=== PATIENT | female | born 1980 | race Caucasian/White ===

== ENCOUNTER 2021-06-30 16:36 | Emergency (ER) | payer OTHER, SELFPAY ==
[2021-06-30 16:39] VITALS: BP 158/110; PULSE 114; RESP 16; TEMP 36.6; O2SAT 100
--- NOTE | 2021-06-30 16:39 | ED.BACK ---
HPI - Back Pain/Injury General Chief Complaint: Back Pain/Injury Stated Complaint: LOW BACK PAIN Time Seen by Provider: 06/30/21 16:41 Source: patient and RN notes reviewed Mode of arrival: ambulatory Limitations: no limitations History of Present Illness HPI Narrative: Nani is a 41 year old female patient who ambulated into the [facility] with low back pain for 1 month. She states she has been sitting more than usual and sleeping on a hard mattress. Denies any numbness or tingling or pain in her legs. She states she stood on her feet all day Monday and Monday which increased pain in her back. She states she has taken Motrin 1 tablet occasionally and no other OTC medications or measures. Denies any urinary symptoms. MD elicited complaint: back pain Related Data Home Medications Medication Instructions Recorded Confirmed irbesartan 300 1 tablet PO DAILY 02/11/20 03/02/21 mg-hydrochlorothiazide 12.5 mg tablet medroxyprogesterone 150 mg/mL 150 mg IM [id number] 02/11/20 03/02/21 intramuscular suspension rizatriptan 10 mg tablet 10 mg PO ONCE 01/19/21 03/02/21 cholecalciferol (vitamin D3) 50 50 mcg PO DAILY 03/02/21 03/02/21 mcg (2,000 unit) capsule Allergies Allergy/AdvReac Type Severity Reaction Status Date / Time No Known Allergies Allergy Verified 07/16/20 15:53 Review of Systems Review of Systems: CONSTITUTIONAL: Denies body aches, fever, chills, or sweats. EYES: Denies visual changes, redness, or discharge. ENT: Denies rhinorrhea, congestion, sore throat, or otalgia. CARDIOVASCULAR: Denies chest pain, palpitations, or edema. RESPIRATORY: Denies cough or dyspnea. GASTROINTESTINAL: Denies abdominal pain, nausea, vomiting, or diarrhea. GENITOURINARY: Denies dysuria or hematuria. SKIN: Denies rash, itching, or wounds. MUSCULOSKELETAL: Denies joint pain, or myalgia.+ back pain NEUROLOGIC: Denies headache, numbness, tingling, or weakness. PSYCH: Denies depression or anxiety. All systems reviewed & are unremarkable except as noted in HPI and below PMFSH Past Medical History Medical History Acute bacterial tonsillitis Anxiety B12 deficiency Encounter for wellness examination Essential (primary) hypertension Frequent headaches Migraine headache with aura Morbid obesity with BMI of 45.0-49.9, adult Plantar fasciitis Primary hypertension Rash and nonspecific skin eruption Vitamin D deficiency Surgical History Surgical History Hx of dilation and curettage x3 [place] teeth extracted Family History Family History Father Heart disease Hypertension Cerebrovascular accident History of heart valve replacement Grandparent Ovarian cancer Grandparent Cancer Grandparent Lung cancer Social History Social History Smoking status: Never smoker Second hand tobacco smoke exposure: No Alcohol intake: never Substance use: never Substance use type: does not use Gender identity (if verbalized by the patient): Female Comments At time of signature, I have reviewed and agree with nursing past medical, surgical, social and family history unless otherwise noted. Please see nursing chart for further information. There is no relevant family history pertinent to the presenting complaint Exam Narrative: GENERAL: Well-appearing, well-nourished, and in no acute distress. HEAD: Normocephalic, atraumatic. EYES: EOMI. No redness or drainage. Conjunctivae normal. ENT: Mucous membranes pink and moist. Nares clear. No rhinorrhea. NECK: Normal AROM. Supple. CHEST: No respiratory distress. Clear to auscultation. MUSCULOSKELETAL: No bony tenderness; EXTREMITIES: Normal range of motion. No edema; straight leg raise negative for sciatica; n
== END 2021-06-30 16:57 | disposition home or self-care (01) ==
PROVIDERS: Emergency Provider Nurse Practitioner Family; PCP Nurse Practitioner Family
DX: S33.5XXA Sprain of ligaments of lumbar spine, initial encounter (principal); X50.1XXA Overexertion from prolonged static or awkward postures, initial encounter; X50.9XXA Other and unspecified overexertion or strenuous movements or postures, initial encounter; I10 Essential (primary) hypertension; E66.01 Morbid (severe) obesity due to excess calories; Z68.42 Body mass index [BMI] 45.0-49.9, adult; E55.9 Vitamin D deficiency, unspecified
CPT/HCPCS: 99213; G0463

== ENCOUNTER 2022-03-11 07:18 | Outpatient (CLI) | payer OTHER, SELFPAY ==
--- NOTE | 2022-03-15 18:47 | WPDHOMESLEEP ---
Sleep Study - Home Unattended Date of Study: 03/11/22 Ordering Provider: Sravani Baker NP Interpreting Provider: Lanie Foreman, DO Home Sleep Study Type: Watch PAT Height: 1.78 m Weight: 167.829 kg Body Mass Index: 53.1 Neck Circumference (inches): 17.75 [place]: 4 Reason for Sleep Study Loud snoring Sleep History The patient is a 41-year-old female with hypertension that had a sleep study ordered by her primary care physician for evaluation of sleep apnea. 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 She denies awakening from sleep short of breath. She occasionally awakens at night with heartburn, belching or cough. She constantly snores loud enough that others complain. She occasionally has trouble sleeping when she has a cold. She rarely wakes up gasping for air throughout the night. She denies having breathing problems at night observed by herself or others. She rarely sweats excessively at night. She denies having heart palpitations or irregular heartbeats during the night. She denies falling asleep during the day and while driving. She denies sleep paralysis and cataplexy. She denies having trouble at school or work due to sleepiness. She rarely experiences vivid dreamlike scenes upon awakening or falling asleep. She denies feeling afraid of going to sleep. She occasionally has nightmares and occasionally remembers her dreams. She frequently has thoughts racing through her mind. She denies feeling sad or depressed. She frequently has anxiety. She denies having muscular tension. She denies noticing parts of her body jerk. She denies kicking during the night. She denies having crawling and aching feelings in her legs as well as leg pain during the night. She denies grinding her teeth during sleep awakening with morning jaw pain. She denies being bothered by pain during the day but is rarely awakened by pain during the night. She occasionally wakes up feeling stiff in the morning. She rarely wakes up with sore achy muscles. She occasionally wakes up with pain in the neck, spine or other joints. She goes to bed at 9:00 p.m. on both weekdays and weekends. It takes her less than 10 minutes to fall asleep. She wakes up 2-3 times throughout the night to urinate. She is able to fall back asleep within 5-10 minutes. She wakes up at 6:00 a.m. on weekdays and between 6-7 a.m. on the weekends. She typically gets 8-9 hours of sleep per night. She will stay in bed for 30 minutes after waking up in the morning. She currently lives with her parents. She does not consume any caffeinated beverages within 2 hours of bedtime. She does not engage in physical exercise before bedtime. She will watch television before falling asleep. She does not take naps in the afternoon or the evening. He drinks 2 cups of caffeinated tea per day. She denies tobacco, alcohol and recreational drug use. [facility] Past Medical History Medical History Acute bacterial tonsillitis Anxiety B12 deficiency Elevated fasting glucose Encounter for wellness examination Essential (primary) hypertension Frequent headaches Lumbago Migraine headache with aura Morbid obesity with BMI of 45.0-49.9, adult Morbid obesity with BMI of 50.0-59.9, adult Nasal congestion Nocturia Paresthesia Plantar fasciitis Primary hypertension Rash and nonspecific skin eruption Snoring Vitamin D deficiency Surgical History Surgical History Hx of dilation and curettage x3 [place] teeth extracted Family History Family History Father Heart disease Hypertension Cerebrovascular accident History of heart valve replacement Grandparent Ovarian cancer Grandparent Cancer Grandparent Lung cancer Social History Social History (Reviewed 03/15/22
[2022-03-15 19:07] VITALS: BMI 53.1
== END 2022-03-14 11:47 | disposition home or self-care (01) ==
LOC: ANHCSM 07:21
PROVIDERS: PCP Nurse Practitioner Family; Visit Provider Nurse Practitioner Family
DX: G47.33 Obstructive sleep apnea (adult) (pediatric) (principal); G47.10 Hypersomnia, unspecified
CPT/HCPCS: 95800

== ENCOUNTER 2022-03-31 08:01 | Outpatient (CLI) | payer OTHER, SELFPAY ==
--- NOTE | 2022-04-19 20:57 | WPDSLEEPSTUD ---
Sleep Study Date of Study: 03/31/22 Ordering Provider: Sravani Baker NP Interpreting Physician: Modesta Garcia MD Sleep Study Type: BiPAP Titration Height: 1.78 m Weight: 167.829 kg Body Mass Index: 53.1 Neck Circumference (inches): 17 [place]: 4 Reason for Sleep Study * 03/11/2022 home sleep test with WatchPat showing severe SARAH, overall AHI of 82.5 with desaturation down to 72%; she is here for a PAP titration. She had few central on her baseline study, central apnea index was only 1.8. Sleep History Nani Tolbert is a 42-year-old female with severe obstructive sleep apnea on a home sleep test 03/11/2022. She denies awakening from sleep short of breath.? She occasionally awakens at night with heartburn, belching or cough.? She constantly snores loudly enough that others complain.? She occasionally has trouble sleeping when she has a cold.? She rarely wakes up gasping for air throughout the night.? She denies having breathing problems at night observed by herself or others.? She rarely sweats excessively at night.? She denies having heart palpitations or irregular heartbeats during the night.? She denies falling asleep during the day or while driving.? She denies feeling paralyzed on falling asleep or on waking. She does not have loss of muscle tone with strong emotion. She denies having daytime difficulties at work due to sleepiness.? She rarely experiences vivid dreamlike scenes upon awakening or falling asleep.? She denies feeling afraid of going to sleep.? She occasionally has nightmares and occasionally remembers her dreams.? She frequently has thoughts racing through her mind.? She denies feeling sad or depressed.? She frequently has anxiety.? She denies having muscular tension.? She denies noticing parts of her body jerk.? She denies kicking during the night.? She denies having crawling and aching feelings in her legs as well as leg pain during the night.? She denies grinding her teeth during sleep or waking with morning jaw pain.? She denies being bothered by pain during the day, and she is rarely awakened by pain during the night.? She occasionally wakes up feeling stiff in the morning.? She rarely wakes up with sore or achy muscles.? She occasionally wakes up with pain in the neck, spine or other joints.? Normal bedtime is 9:00 p.m., taking less taking less than 10 minutes to fall asleep.? She wakes up 2-3 times throughout the night to urinate.? She is able to return to sleep within 5-10 minutes.? She wakes up at 6:00 a.m. on weekdays and between 6-7 a.m. on the weekends.? She typically gets 8-9 hours of sleep per night.? She will stay in bed for 30 minutes after waking up in the morning.? She currently lives with her parents.? She does not take naps in the afternoon or the evening.? Habits: 2 cups of caffeinated tea per day.? She denies tobacco, alcohol and recreational drug use. [facility] Past Medical History Medical History Acute bacterial tonsillitis Anxiety B12 deficiency Elevated fasting glucose Encounter for wellness examination Essential (primary) hypertension Frequent headaches Lumbago Migraine headache with aura Morbid obesity with BMI of 45.0-49.9, adult Morbid obesity with BMI of 50.0-59.9, adult Nasal congestion Nocturia Paresthesia Plantar fasciitis Primary hypertension Rash and nonspecific skin eruption Snoring Vitamin D deficiency Surgical History Surgical History Hx of dilation and curettage x3 [place] teeth extracted Family History Family History Father Heart disease Hypertension Cerebrovascular accident History of heart valve replacement Grandparent Ovarian cancer Grandparent Cancer Grandparent Lung cancer Social History Social History Aj
[2022-04-21 15:12] VITALS: BMI 53.1
== END 2022-04-01 05:16 | disposition home or self-care (01) ==
LOC: ANHCSM 08:02
PROVIDERS: PCP Nurse Practitioner Family; Visit Provider Nurse Practitioner Family
DX: G47.33 Obstructive sleep apnea (adult) (pediatric) (principal); G47.39 Other sleep apnea
CPT/HCPCS: 95811

== ENCOUNTER → 2023-01-09 10:11 | Outpatient (CLI) | payer OTHER, SELFPAY ==
--- NOTE | ~2023-01-09 | XR_ITS ---
EXAMINATION: XR ribs LT 2V Exam Date/Time: 01/09/2023 10:13 CDT HISTORY: R07.81 - Pleurodynia, left lower posterior rib pain Comparison: 12/26/2017. RESULT: Lines, tubes, and devices: None. Lungs and pleura: Low volumes in the left hemithorax. Considerable elevation of the left hemidiaphra gm, new since prior study. Minimal streaky left basilar atelectasis. No focal consolidation. Cardiothymic silhouette: Stable. Other: No acute osseous or upper abdominal finding. IMPRESSION: Low lung volumes with left hemidiaphragm elevation. No acute osseous finding in the left ribs. Reviewed, dictated and finalized at location K.
== END ==
PROVIDERS: PCP Family Medicine; Visit Provider Nurse Practitioner Family
DX: R07.81 Pleurodynia (principal)
CPT/HCPCS: 71100

== ENCOUNTER 2023-01-11 07:07 | Outpatient (CLI) | payer OTHER, SELFPAY ==
--- NOTE | 2023-01-11 07:38 | ECG_ITS ---
Measurements Intervals [place] Rate: 88 P: 59 [place]: 157 QRS: -21 QRSD: 107 T: 18 QT: 359 QTc: 436 Interpretive Statements SINUS RHYTHM LOW QRS VOLTAGE IN PRECORDIAL LEADS INCOMPLETE RIGHT BUNDLE BRANCH BLOCK BORDERLINE R WAVE PROGRESSION, ANTERIOR LEADS BORDERLINE ECG NO PREVIOUS ECG AVAILABLE FOR COMPARISON Electronically Signed On 01-11-2023 7:53:15 CDT by Alli Kauffman D.O.
[2023-01-11 07:49] LABS: Alanine Aminotransferase 22 U/L (6-35); Albumin Level 4.2 g/dL (3.5-5.1); Alkaline Phosphatase 62 U/L (38-126); Anion Gap 7 mmol/L (8-16); Aspartate Amino Transferase 24 U/L (14-36); Bilirubin,Total 1.1 mg/dL (0.2-1.3); Blood Urea Nitrogen 12 mg/dL (7-17); Calcium 9.1 mg/dL (8.4-10.2); Carbon Dioxide 26 mmol/L (22-30); Chloride 104 mmol/L (98-107); Cholesterol 170 mg/dL (0-200); Estimated Glomerular Filt Rate > 60; Glucose 122 mg/dL (65-110); HDL Direct 34 mg/dL; Lipase 81 U/L (23-300); Potassium 3.9 mmol/L (3.4-5.0); Sodium 137 mmol/L (137-145); Triglycerides 140 mg/dL (<150)
[2023-01-11 08:00] LABS: LDL Cholesterol Direct 105 mg/dL
[2023-01-11 12:07] LABS: Hemoglobin A1C 5.7 % (<5.7)
== END 2023-01-11 07:08 | disposition home or self-care (01) ==
LOC: ANHLAB 07:11
PROVIDERS: PCP Family Medicine; Visit Provider Nurse Practitioner Family
DX: R10.12 Left upper quadrant pain (principal); Z68.43 Body mass index [BMI] 50.0-59.9, adult; E66.01 Morbid (severe) obesity due to excess calories; R73.01 Impaired fasting glucose; R07.81 Pleurodynia; I10 Essential (primary) hypertension; Z82.49 Family history of ischemic heart disease and other diseases of the circulatory system; I45.19 Other right bundle-branch block
CPT/HCPCS: 36415; 80053; 80061; 83036; 83690; 93005

== ENCOUNTER → 2023-02-03 07:18 | Outpatient (CLI) | payer OTHER, SELFPAY ==
--- NOTE | ~2023-02-03 | MM_ITS ---
EXAMINATION: MM screening [place] BI w ninfa HISTORY: Screening mammogram TECHNIQUE: Craniocaudal and mediolateral oblique 3-D tomosynthesis images were obtained and synthetic 2-D images were generated. CAD analysis was submitted and interpreted. COMPARISON: No prior mammogram is available for comparison at this institution. BREAST PARENCHYMAL COMPOSITION: There are scattered areas of fibroglandular density. FINDINGS: There is no evidence of suspicious mass, calcification, or architectural distortion to sugg est malignancy in either breast. There has been no suspicious interval change. IMPRESSION: 1. No mammographic evidence of malignancy. 2. Recommend routine screening mammography in one year. BI-RADS Category 1: Negative Reviewed, dictated and finalized at location A.
== END ==
PROVIDERS: PCP Nurse Practitioner Family; Visit Provider Obstetrics & Gynecology
DX: Z12.31 Encounter for screening mammogram for malignant neoplasm of breast (principal)
CPT/HCPCS: 77063; 77067

== ENCOUNTER → 2023-03-15 08:00 | Outpatient (CLI) | payer OTHER, SELFPAY ==
--- NOTE | ~2023-03-15 | CT_ITS ---
CT of the Abdomen and Pelvis: Indication: Left flank pain Technique: 2.5 mm axial scans were obtained through the abdomen and pelvis prior to and following in travenous administration of 100 cc of Omnipaque 350. Dose reduction technique was used on this scan b y utilizing automated exposure control and iterative reconstruction technique. The dose-length produc t (DLP) was 1988.64 mGy-cm. Findings: Scans through the lung bases are unremarkable. The liver, spleen, pancreas, gallbladder, right adrenal gland, and kidneys are within normal limits. 1.4 cm left adrenal nodule demonstrates low density on precontrast images, compatible with benign nirav noma. No evidence of aortic aneurysm. No lymphadenopathy. No bowel obstruction or bowel wall thickening. There is no evidence to suggest acute appendicitis. Images through the pelvis were performed. Urinary bladder unremarkable. No adnexal mass seen. No asci neri. Impression: 1.4 cm left adrenal adenoma, otherwise unremarkable exam. Reviewed, dictated and finalized at [facility]. Impression: 1.4 cm left adrenal adenoma, otherwise unremarkable exam.
[2023-03-15 08:39] LABS: Estimated Glomerular Filt Rate > 60
== END ==
PROVIDERS: PCP Nurse Practitioner Family; Visit Provider Family Medicine
DX: D35.02 Benign neoplasm of left adrenal gland (principal); R10.9 Unspecified abdominal pain; J98.6 Disorders of diaphragm
CPT/HCPCS: 74178; Q9967

== ENCOUNTER → 2023-08-02 09:16 | Outpatient (CLI) | payer OTHER, SELFPAY ==
--- NOTE | ~2023-08-02 | XR_ITS ---
EXAMINATION: XR ribs LT 2V w CXR 2V DATE: 08/02/2023 09:35 INDICATION: Left lateral chest pain. TECHNIQUE: Frontal and lateral views of the chest and 2 views on 3 radiographs of the left ribs were obtained. COMPARISON: Left rib radiographs 01/09/2023 FINDINGS: CHEST TWO VIEWS: There is no pneumonia, pleural effusion, or pneumothorax. The heart size is normal. LEFT RIBS: There is no rib fracture. IMPRESSION: 1. No rib fracture. Reviewed, dictated and finalized at location A. IN[facility] CENTER MANAGER IMPRESSION: 1. No rib fracture.
== END ==
PROVIDERS: PCP Family Medicine; Visit Provider Nurse Practitioner Family
DX: R07.89 Other chest pain (principal)
CPT/HCPCS: 71046; 71100

== ENCOUNTER 2024-06-08 07:11 | Outpatient (CLI) | payer OTHER, SELFPAY ==
[2024-06-08 07:29] LABS: Basophils Absolute Auto 0.1 K/mm3 (0.0-0.1); Basophils Percent Auto 0.8 % (0.2-1.2); Eosinophils Absolute Auto 0.1 K/mm3 (0-0.3); Eosinophils Percent Auto 1.7 % (0-4.4); Hematocrit 41.4 % (37.0-47.0); Hemoglobin 13.8 g/dL (12.0-15.0); Immature Granulocyte Absolute 0.03 K/mm3 (0.00-0.031); Immature Granulocyte Percent A 0.4 % (0-0.5); Lymphocytes Absolute Auto 1.68 K/mm3 (0.9-3.2); Lymphocytes Percent Auto 21.6 % (18.3-44.2); Mean Corpuscular HGB Conc 33.3 g/dl (32-36); Mean Platelet Volume 10.7 fl (7.4-10.4); Monocytes Absolute Auto 0.4 K/mm3 (0.1-0.6); Monocytes Percent Auto 5.3 % (2.6-8.5); Neutrophils Absolute Auto 5.5 K/mm3 (1.3-6.7); Neutrophils Percent Auto 70.2 % (45.5-73.1); Platelet Count Result 230 k/mm3 (150-375); Red Blood Count 4.45 M/mm3 (4.2-5.4); White Blood Count 7.8 K/mm3 (4.5-10.0)
[2024-06-08 07:40] LABS: Alanine Aminotransferase 15 U/L (6-35); Alkaline Phosphatase 60 U/L (38-126); Anion Gap 6 mmol/L (4-12); Aspartate Amino Transferase 21 U/L (14-36); Bilirubin,Total 0.8 mg/dL (0.2-1.3); Blood Urea Nitrogen 13 mg/dL (7-17); Calcium 9.1 mg/dL (8.4-10.2); Carbon Dioxide 27 mmol/L (22-30); Chloride 107 mmol/L (98-107); Cholesterol 158 mg/dL (0-200); Estimated Glomerular Filt Rate > 60; Glucose 118 mg/dL (65-110); HDL Direct 34 mg/dL; Potassium 4.5 mmol/L (3.4-5.0); Sodium 140 mmol/L (137-145); Triglycerides 122 mg/dL (<150)
[2024-06-08 07:48] LABS: Hemoglobin A1C 5.8 % (<5.7)
[2024-06-08 07:51] LABS: LDL Cholesterol Direct 87 mg/dL
[2024-06-08 08:37] LABS: Vitamin D 25 Hydroxy 29.2 ng/mL
[2024-06-08 10:11] LABS: Add Urine Microscopic? YES; Appearance Urine Clear (Clear); Bacteria Urine None Seen /hpf; Bilirubin Urine Negative (Negative); Blood Urine Negative (Negative); Color Urine Yellow (Yellow); Glucose Urine UA Negative (Negative); Ketones Urine Negative (Negative); Leukocyte Esterase Ur 1+ LEU/UL (Negative); Need Manual Microscopic Reviewed; Nitrate Urine Negative (Negative); Non Pathogenic Casts 0-2; Protein Urine Negative (Negative); RBC Urine 0-2 /hpf (0-2); Specific Grav Ur 1.017 (1.001-1.035); Squamous Epithelial Cell Urine None Seen /hpf (Few); WBC Urine 0-5 /hpf (0-3); pH Urine 7.5 (5.0-9.0)
== END 2024-06-08 07:12 | disposition home or self-care (01) ==
PROVIDERS: PCP Nurse Practitioner Family; Visit Provider Nurse Practitioner Family
DX: Z00.00 Encounter for general adult medical examination without abnormal findings (principal); Z13.1 Encounter for screening for diabetes mellitus; Z13.0 Encounter for screening for diseases of the blood and blood-forming organs and certain disorders involving the immune mechanism; Z13.6 Encounter for screening for cardiovascular disorders; E55.9 Vitamin D deficiency, unspecified; E53.8 Deficiency of other specified B group vitamins; E66.01 Morbid (severe) obesity due to excess calories; Z68.42 Body mass index [BMI] 45.0-49.9, adult
CPT/HCPCS: 36415; 80053; 80061; 81001; 82306; 82607; 83036; 84443; 85025

== ENCOUNTER 2024-07-19 10:40 | Outpatient (CLI) | payer OTHER, SELFPAY ==
[2024-07-19 12:10] LABS: Add Urine Microscopic? NO; Appearance Urine Clear (Clear); Bilirubin Urine Negative (Negative); Blood Urine Negative (Negative); Color Urine Yellow (Yellow); Glucose Urine UA Negative (Negative); Ketones Urine Negative (Negative); Leukocyte Esterase Ur Negative LEU/UL (Negative); Nitrate Urine Negative (Negative); Protein Urine Negative (Negative); Specific Grav Ur 1.012 (1.001-1.035); Urobilinogen Urine 0.2 mg/dL (<2.0)
== END 2024-07-19 10:41 | disposition home or self-care (01) ==
PROVIDERS: PCP Nurse Practitioner Family; Visit Provider Nurse Practitioner Family
DX: R30.0 Dysuria (principal)
CPT/HCPCS: 81003

== ENCOUNTER 2024-08-31 11:14 | Emergency (ER) | payer OTHER, SELFPAY ==
[2024-08-31 13:01] VITALS: BP 141/107; PULSE 78; RESP 16; TEMP 36.6; O2SAT 100
--- NOTE | 2024-08-31 13:46 | ED_ITS ---
HPI - URI/Sore Throat General Chief Complaint: Upper Respiratory Infection Stated Complaint: sore throat, cough, hot and cold Time Seen by Provider: 08/31/24 13:36 Source: patient and RN notes reviewed Mode of arrival: ambulatory Limitations: no limitations History of Present Illness HPI Narrative: Patient presents today complaining of a 9-10 day history of sore throat, rhinorrhea, postnasal drip, nasal congestion, cough. Symptoms are worse at night and have worsened over the past 3 days. Denies fever or shortness of breath. She has been using Mucinex and occasional Afrin with little relief. No history of asthma or COPD. She is a nonsmoker. Related Data Home Medications ?Medication ?Instructions ?Recorded ?Confirmed ?Last Taken ?Type medroxyprogesterone 150 mg/mL 150 mg IM [id number] 02/11/20 08/31/24 Unknown History intramuscular suspension cholecalciferol (vitamin D3) 50 50 mcg PO DAILY 03/02/21 08/31/24 Unknown History mcg (2,000 unit) capsule mecobalamin (vitamin B12) 500 mcg 500 mcg PO DAILY 03/27/23 08/31/24 Unknown History chewable tablet Allergies Allergy/AdvReac Type Severity Reaction Status Date / Time No Known Allergies Allergy Verified 08/31/24 13:00 Review of Systems Review of Systems: CONSTITUTIONAL: Denies body aches, fever, chills, or sweats. EYES: Denies visual changes, redness, or discharge. ENT: Denies otalgia.+ postnasal drip, rhinorrhea, congestion, sore throat CARDIOVASCULAR: Denies chest pain, palpitations, or edema. RESPIRATORY: Denies dyspnea.+ cough GASTROINTESTINAL: Denies abdominal pain, nausea, vomiting, or diarrhea. GENITOURINARY: Denies dysuria or hematuria. SKIN: Denies rash, itching, or wounds. MUSCULOSKELETAL: Denies back pain, joint pain, or myalgia. NEUROLOGIC: Denies headache, numbness, tingling, or weakness. PSYCH: Denies depression or anxiety. [facility] Past Medical History Medical History Breast cancer screening Left-sided chest wall pain Acquired elevated diaphragm elevated left hemidiaphragm on chest x-ray 01/09/2023 new since 12/26/2017. Acute LUQ pain Rib pain on left side Cough COVID-19 11/18/22 Dysuria Elevated fasting glucose Nocturia Paresthesia Snoring Morbid obesity with BMI of 50.0-59.9, adult Nasal congestion Lumbago Anxiety Acute bacterial tonsillitis Rash and nonspecific skin eruption Vitamin D deficiency B12 deficiency Encounter for wellness examination Plantar fasciitis Morbid obesity with BMI of 45.0-49.9, adult Migraine headache with aura Primary hypertension Frequent headaches Essential (primary) hypertension Surgical History Surgical History [place] teeth extracted Hx of dilation and curettage x3 Family History Family History Father Heart disease Hypertension Cerebrovascular accident History of heart valve replacement Grandparent Ovarian cancer Grandparent Cancer Grandparent Lung cancer Social History Social History Smoking status: Never smoker Second hand tobacco smoke exposure: No Alcohol intake: never Substance use: never Substance use type: does not use Lack of Transportation: No Lack of Food: Never True Current Housing: I Have Housing Concerned About Future Housing: No Difficulty Paying Gas/Electric Bills: No Difficulty Paying for Meds: No Currently Unemployed: No Education: High School Diploma/GED Difficulty w/ Childcare or Family Care: No Gender identity (if verbalized by the patient): Female Comments At time of signature, I have reviewed and agree with nursing past medical, surgical, social and family history unless otherwise noted. Please see nursing chart for further information. There is no relevant family history pertinent to the presenting complaint Exam Narrative: GENERAL: Well-appearing, well-nourished, and in no acute distress. HEAD: Normocephalic, atraumatic. EYES: EOMI. No redness or drainage. Conjunctivae normal. ENT: Mucous membranes pink and moist. Nares congested with rhinorrhea. TMs normal bilaterally. Throat normal. Uvula midline. NECK: Normal AROM. Supple. No lymphadenopathy. CHEST: No respiratory distress. Clear to auscultation. HEART: Regular rate and rhythm. No murmur appreciated. EXTREMITIES: Normal range of motion. No edema. SKIN: Warm, dry, no rash. Capillary refill normal. Normal skin turgor. NEURO: No focal deficits. Alert and oriented x3. Gait steady. PSYCH: Normal affect. No signs of depression or anxiety. Course Course Level of Care: Express Care Visit Vital Signs Vital signs: Vital Signs Temperature 97.8 F 08/31/24 13:01 Pulse Rate 78 08/31/24 13:01 Respiratory Rate 16 08/31/24 13:01 Blood Pressure 141/107 H 08/31/24 13:01 Pulse Oximetry 100 08/31/24 13:01 Temperature 97.8 F 08/31/24 13:01 Pulse Rate 78 08/31/24 13:01 Respiratory Rate 16 08/31/24 13:01 Blood Pressure 141/107 H 08/31/24 13:01 Pulse Oximetry 100 08/31/24 13:01 Reviewed MDM - URI/Sore Throat MDM Narrative Medical decision making narrative: Patient will be started on a course of Augmentin and prednisone for sinusitis and bronchitis as her symptoms have been present for 10 days. She has been warned regarding rhinitis medicamentosa and Afrin use. Anticipatory guidance given. Differential Diagnosis Differential diagnosis: Likely upper respiratory infection, sinusitis, viral infection, bronchitis and other (Pneumonia) Critical Care Time Critical Care Time Critical Care Time: No Discharge Plan Discharge Clinical Impression: Bronchitis Sinusitis Qualifiers: Sinusitis location: unspecified location Chronicity: acute Recurrence: non- recurrent Qualified Code(s): J01.90 - Acute sinusitis, unspecified Patient Disposition: Home, Self-Care Condition: Stable Instructions: Antibiotic Form, Sinusitis (ED), Acute Bronchitis (ED) Additional Instructions: Please take the Augmentin and prednisone as directed. You may continue [id number] medication as needed for your symptoms, but use caution with use of Afrin. Follow-up with your PCP in 3 days if symptoms are not improving. Your blood pressure was elevated above 120/80 today at Urgent Care. This puts you above the threshold for follow up. Please schedule a followup visit with your personal physician as soon as possible, for further evaluation and treatment. Even blood pressure exceeding 120/80 may indicate pre-hypertension. Patient Language: Spanish Prescriptions: New prednisone 50 mg tablet 50 mg PO DAILY 5 Days Qty: 5 0RF amoxicillin-pot clavulanate 875-125 mg tablet 1 tablet PO Q12H 7 Days Qty: 14 0RF No Action cholecalciferol (vitamin D3) 50 mcg (2,000 unit) capsule 50 mcg PO DAILY metoprolol succinate 50 mg tablet extended release 24 hr 50 mg PO DAILY Qty: 90 3RF irbesartan-hydrochlorothiazide 300-12.5 mg tablet 1 tablet PO DAILY Qty: 90 3RF medroxyprogesterone 150 mg/mL suspension 150 mg IM [id number] rizatriptan 10 mg tablet 10 mg PO ONCE Qty: 9 11RF Rx Instructions: may repeat once after at least 2 hours mecobalamin (vitamin B12) 500 mcg tablet,chewable 500 mcg PO DAILY fluticasone propionate [Flonase Allergy Relief] 50 mcg/actuation spray,suspension 1 - 2 spray intranasal Q12H Qty: 16 12RF Rx Instructions: administer into each nostril mupirocin 2 % ointment 1 applic topical BID Qty: 22 12RF codeine-guaifenesin 10-100 mg/5 mL liquid 5 - 10 ml PO Q6H PRN (Reason: cough) Qty: 120 0RF Follow-up/Referrals: Sravani Baker NP [Primary Care Provider] -
== END 2024-08-31 13:52 | disposition home or self-care (01) ==
PROVIDERS: Emergency Provider Nurse Practitioner; PCP Nurse Practitioner Family
DX: J40 Bronchitis, not specified as acute or chronic (principal); J01.90 Acute sinusitis, unspecified; I10 Essential (primary) hypertension; E55.9 Vitamin D deficiency, unspecified; E53.8 Deficiency of other specified B group vitamins; E66.01 Morbid (severe) obesity due to excess calories; Z68.43 Body mass index [BMI] 50.0-59.9, adult; Z86.16 Personal history of COVID-19
CPT/HCPCS: 99213; G0463

== ENCOUNTER 2024-09-16 12:07 | Outpatient (CLI) | payer OTHER, SELFPAY ==
--- NOTE | ~2024-09-16 | XR_ITS ---
XR foot RT min 3V Ordering provider: Christo Steel APRN History: . M25.571 - Pain in right ankle and joints of right foot . Comparison: None. FINDINGS: BONES: No acute fracture or dislocation. Calcaneal spur. JOINT SPACES: Normal. No tarsal coalition. SOFT TISSUES: Normal. IMPRESSION: No acute osseous abnormality of the right foot. Reviewed, dictated and finalized at location A. NCIAL RESERVE CLERK
--- NOTE | ~2024-09-16 | XR_ITS ---
XR ankle RT min 3V Ordering provider: Christo Steel APRN History: . M79.671 - Pain in right foot . Comparison: None. FINDINGS: BONES: No acute fracture or dislocation. Calcaneal spur. JOINT SPACES: Normal. SOFT TISSUES: Normal. IMPRESSION: No acute osseous abnormality of the right ankle. Reviewed, dictated and finalized at location A. OMER ACQUISITION SPECIALIST
== END 2024-09-16 12:08 | disposition home or self-care (01) ==
LOC: GOSHIMG 12:08
PROVIDERS: PCP Nurse Practitioner Family; Visit Provider Student in an Organized Health Care Education/Training Program
DX: M25.571 Pain in right ankle and joints of right foot (principal); G89.29 Other chronic pain; M79.671 Pain in right foot
CPT/HCPCS: 73610; 73630

== ENCOUNTER 2024-12-24 08:58 | Outpatient (CLI) | payer OTHER, SELFPAY ==
--- NOTE | ~2024-12-24 | DEXA_ITS ---
Bone Density Report Name: CASANDRA BANUELOS Age: 44 Sex: Female Ethnicity: White Date of : 1980 Indication: Referring Provider: JOLIE REY Study: Bone densitometry was performed. Exam Date: December 24, 2024 Accession number: [id number] Bone Density: Region BMD T-score Z-score Classification AP Spine(L1-L4) 0.984 -0.6 -0.2 Normal Femoral Neck (Left) 0.939 0.8 1.2 Normal Total Hip (Left) 1.233 2.4 2.6 Normal Femoral Neck (Right) 1.061 1.9 2.3 Normal Total Hip (Right) 1.194 2.1 2.3 Normal Total Hip Mean 1.214 2.3 2.5 Normal World Health Organization criteria for BMD impression classify patients as: Normal (T-score at or above -1.0), Osteopenia (T-score between -1.0 and -2.5), or Osteoporosis (T-score at or below -2.5). 10-year Fracture Risk: FRAX not reported because: Premenopausal woman All T-scores for Spine Total, Hip Total, Femoral Neck at or above -1.0 Clinical Information Provided by Patient: Has used the following medications: Vitamin D Patient maximum height was 70 No regular weight bearing exercise Drinks caffeinated beverages Onset of menses at age 18 Premenopausal Number of children 0 Missed period for more than 6 months in a row Impression: The patient's bone mass is within expected range for age, gender and ethnicity. Discussion: BONE DENSITY IS WITHIN EXPECTED LIMITS FOR AGE, SEX AND RACE. Bone density is within expected limits for age, sex and race at all sites measured. The patient should follow a healthful lifestyle (good nutrition with adequate calcium and vitamin D, and appropriate weight-bearing exercise). Follow-Up: Consider repeating this study in 5 years or sooner if there is some new clinical indication. Reported by: NATALEE on 12/24/2024 9:50:00 AM. Reviewed, dictated and finalized at location A. [facility]
--- OUTSIDE RECORDS SUMMARY | 2024-12-24 09:38 | XMS_ITS | Clinical Summary ---
Author Organization [facility] [place] [address] Address [address] [place] [address] Care Team Providers Care Impregnating Tank Operator Name Role Phone Janes Oakes MD Primary Care Provider [phone] [phone] Allergies No known active allergies Medications irbesartan-hydro CHLOROthiazide (AVALIDE) 300-12.5 mg per tabletIndication s:hypertension TAKE 1 TABLET BY MOUTH DAILY 30 tablet 11 06/14/2022 Active rizatriptan (MAXALT) 10 mg tablet Take 1 tablet (10 mg total) by mouth as needed Active metoprolol XL (TOPROL-XL) 50 mg extended release tablet Take 1 tablet (50 mg total) by mouth daily 07/12/2024 Active Active Problems Problem Noted Date Diagnosed Date Cardiac arrhythmia 04/10/2020 Assessment & Plan (04/10/2020 11:07 AM CDT): EKG confirms sinus tachycardia at a low rate. Unlikely to represent any significant pathology. Morbid obesity with BMI of 45.0-49.9, adult 09/2017 Assessment & Plan (07/22/2022 9:36 AM SQUAD LEADER): Significant weight gain since last appointment but not edematous. Encouraged her to speak to her primary care provider regarding weight loss strategies which the patient is anxious to pursue. Assessment & Plan (04/09/2021 11:11 AM CDT): Admits she struggles, in part, because she is working from home during the pandemic and is less active. Discussed the value of walking regularly. Assessment & Plan (04/05/2019 12:00 PM CDT): Discussed the importance of weight loss strategies. Conveyed to her that I would characterize her obesity as her principal health issue. Assessment & Plan (03/14/2018 4:02 PM CDT): Meaningful weight loss should be pursued. Assessment & Plan (02/02/2018 12:49 PM CDT): Encouraged meaningful weight loss. Explained the relationship between obesity and hypertension. Essential hypertension 02/02/2018 Assessment & Plan (07/23/2024 2:56 PM SQUAD LEADER): Blood pressure is reasonably well controlled at home. Reports that metoprolol was added to her regimen since her last visit with me. Continue Avalide and metoprolol. Assessment & Plan (07/22/2022 9:36 AM SQUAD LEADER): Well controlled. Continue current prescription medications. Assessment & Plan (04/09/2021 11:11 AM CDT): Well controlled. Continue current prescription medications. Assessment & Plan (04/10/2020 11:06 AM CDT): Well controlled. Suggested she could now have her primary care physician manage her hypertension but she preferred to return on an annual basis. Assessment & Plan (04/05/2019 11:59 AM CDT): Difficult to assess blood pressure due to body habitus. Her systolic blood pressures palpated at 120 mm Hg. Continue current therapy. Assessment & Plan (03/14/2018 4:02 PM CDT): Better controlled. Continue current therapy. Assessment & Plan (02/02/2018 12:50 PM CDT): Advised that we work to achieve tighter blood pressure control. Inform curve new blood pressure guidelines which suggest that has blood pressure should be maintained below 130/80. Plan: Discontinue indapamide and Avapro. Start Avalide 300/12.5 daily. Precordial chest pain 02/02/2018 Assessment & Plan (02/02/2018 12:50 PM CDT): Likely a consequence of hypertension and noncompliance with her antihypertensive regimen. Low likelihood of ischemic heart disease. Her only risk factor is hypertension. She has not had any further discomfort since the initial event in her EKG obtained in the office today shows no significant findings. Medical History Medical History Date Comments Hypertension Anxiety march 02 2021 Migraines Family History Medical History Relation Name Comments Heart disease Father Amilcar Tolbert Hypertension Father Amilcar Tolbert Stroke Father Amilcar Tolbert Cancer Maternal Grandmother Rosalva Kirk No Known Problems Mother Cancer Paternal Grandfather Milton Tolbert Cancer Paternal Grandmother Luz Marina Rebollar Hypertension Sister 1 Pily Nordike Miscarriages / Stillbirths Sister 1 Pily Nordik e Miscarriages / Stillbirths Sister 2 Lenka Tolbert Relation Name Status Comments Father Amilcar Tolbert Alive Maternal Grandmother Rosalva Kirk Mother Alive Paternal Grandfather Milton Tolbert Paternal Grandmother Luz Marina Rebollar Sister 1 Pily Moniqueike Sister 2 Lenka Tolbert Social History Tobacco Use Types Packs/Day Years Used Date Smoking Tobacco: Never Cigarettes Smokeless Tobacco: Never Tobacco Cessation:Counseling Given: Not Answered Alcohol Use Standard Drinks/Week Comments No 0 (1 standard drink = 0.6 oz pur e alcohol) Comments Unknown Sex and Gender Information Value Date Recorded Sex Assigned at Not on file Legal Sex Female 11:09 AM CDT Gender Identity Female 04/06/2020 1:43 PM CDT Sexual Orientation Not on file Obstetrics History Last Filed Vital Signs Vital Sign Reading Time Taken Comments Blood Pressure 134/80 07/23/2024 2:37 PM SQUAD LEADER Pulse 86 07/23/2024 2:37 PM SQUAD LEADER Temperature - - Respiratory Rate 16 04/10/2020 10:32 AM CDT Oxygen Saturation 96% 07/23/2024 2:37 PM SQUAD LEADER Inhaled Oxygen Concentration - - Weight 167.8 kg (370 lb) 07/23/2024 2:37 PM SQUAD LEADER Height 177.8 cm (5' 10 ) 07/23/2024 2:37 PM SQUAD LEADER Body Mass Index 53.09 07/23/2024 2:37 PM SQUAD LEADER Plan of Treatment Health Maintenance Due Date Last Done Comments Breast Cancer Screening-Mammogram 1982 Cervical Cancer Screening 1982 Depression Screening 1982 Hepatitis C Screening 1982 DTaP/Tdap/Td Vaccine (1 - Tdap) 1993 Varicella Vaccines (1 of 2 - 13+ 2-dose series) 1995 Hepatitis B Screening 2000 Regular Well Visit/Exam 18-64 2000 Influenza Vaccine (#1) 2024 09/24/2012 HPV Vaccines Aged Out No longer eligi ble based on patient's age to complete this topic Pneumococcal vaccine <65 Aged Out No longer eligible based on patient's age to complete this topic Insurance IDLA [facility] H[facility]/PP[facility] Address: [address] [address] [place] [address] [facility] H[facility]/PPO Address: [address] [address] Care Teams Impregnating Tank Operator Relationship Specialty Start Date End Date Janes Oakes MD [address] [id number] PCP - General Family Medicine 07/22/22
--- OUTSIDE RECORDS SUMMARY | 2024-12-24 09:38 | XMS_ITS | Referral Summary ---
Author Organization [facility] [place] [address] Address [address] [place] [address] Care Team Providers Care Appeals Examiner Name Role Phone Janes Oakes MD Primary Care Provider [phone] [phone] Allergies No known active allergies Medications irbesartan-hydro [...] 09/2017 Assessment & Plan (07/22/2022 9:36 AM CATCHER HELPER): Significant weight gain since last appointment but [...] 02/02/2018 Assessment & Plan (07/23/2024 2:56 PM CATCHER HELPER): Blood pressure is reasonably well controlled at home. Reports that metoprolol was added to her regimen since her last visit with me. Continue Avalide and metoprolol. Assessment & Plan (07/22/2022 9:36 AM CATCHER HELPER): Well controlled. Continue current prescription medications. Assessment [...] the office today shows no significant findings. Social History Tobacco Use Types Packs/Day Years [...] PM CDT Sexual Orientation Not on file Last Filed Vital Signs Vital Sign Reading Time Taken Comments Blood Pressure 134/80 07/23/2024 2:37 PM CATCHER HELPER Pulse 86 07/23/2024 2:37 PM CATCHER HELPER Temperature - - Respiratory Rate 16 04/10/2020 10:32 AM CDT Oxygen Saturation 96% 07/23/2024 2:37 PM CATCHER HELPER Inhaled Oxygen Concentration - - Weight 167.8 kg (370 lb) 07/23/2024 2:37 PM CATCHER HELPER Height 177.8 cm (5' 10 ) 07/23/2024 2:37 PM CATCHER HELPER Body Mass Index 53.09 07/23/2024 2:37 PM CATCHER HELPER Plan of Treatment Not on file Insurance IDPA [facility] HMO/PPO Address: [address] [address] [place] [address] [facility] HMO/PPO Address: [address] [address] [place] [address] Care Teams Appeals Examiner Relationship Specialty Start Date End Date Janes Oakes MD [address] [address] PCP - General Family Medicine 07/22/22
== END 2024-12-24 08:59 | disposition home or self-care (01) ==
PROVIDERS: PCP Nurse Practitioner Family; Visit Provider Obstetrics & Gynecology
DX: Z78.0 Asymptomatic menopausal state (principal); Z79.3 Long term (current) use of hormonal contraceptives
CPT/HCPCS: 77080

== ENCOUNTER 2024-12-28 06:55 | Outpatient (CLI) | payer OTHER, MEDICAID, SELFPAY ==
--- OUTSIDE RECORDS SUMMARY | 2024-12-28 07:00 | XMS_ITS | Clinical Summary ---
Author Organization [facility] [place] [address] Address [address] [place] [address] Care Team Providers Care Clinical Services Director Name Role Phone Janes Oakes MD Primary Care Provider [phone] [phone] Allergies No known active allergies Medications irbesartan-hydro [...] 09/2017 Assessment & Plan (07/22/2022 9:36 AM PLANER STONE): Significant weight gain since last appointment but [...] 02/02/2018 Assessment & Plan (07/23/2024 2:56 PM PLANER STONE): Blood pressure is reasonably well controlled at home. Reports that metoprolol was added to her regimen since her last visit with me. Continue Avalide and metoprolol. Assessment & Plan (07/22/2022 9:36 AM PLANER STONE): Well controlled. Continue current prescription medications. Assessment [...] Comments Blood Pressure 134/80 07/23/2024 2:37 PM PLANER STONE Pulse 86 07/23/2024 2:37 PM PLANER STONE Temperature - - Respiratory Rate 16 04/10/2020 10:32 AM CDT Oxygen Saturation 96% 07/23/2024 2:37 PM PLANER STONE Inhaled Oxygen Concentration - - Weight 167.8 kg (370 lb) 07/23/2024 2:37 PM PLANER STONE Height 177.8 cm (5' 10 ) 07/23/2024 2:37 PM PLANER STONE Body Mass Index 53.09 07/23/2024 2:37 PM PLANER STONE Plan of Treatment Health Maintenance Due Date [...] patient's age to complete this topic Insurance IDOH [facility] HMO/PPO Address: [address] [address] [place] [address] [facility] HMO/PPO Address: [address] [address] Care Teams Clinical Services Director Relationship Specialty Start Date End Date Janes Oakes MD [address] [id number] PCP - General Family Medicine 07/22/22
--- OUTSIDE RECORDS SUMMARY | 2024-12-28 07:00 | XMS_ITS | Referral Summary ---
Author [place] [facility] [place] [address] Address [address] [place] [address] Care Team Providers Care Plastic Straightening Roll Operator Name Role Phone Janes Oakes MD Primary Care Provider [phone] [phone] Allergies No known active allergies Medications irbesartan-hydro [...] 09/2017 Assessment & Plan (07/22/2022 9:36 AM UKE DRIVER): Significant weight gain since last appointment but [...] 02/02/2018 Assessment & Plan (07/23/2024 2:56 PM UKE DRIVER): Blood pressure is reasonably well controlled at home. Reports that metoprolol was added to her regimen since her last visit with me. Continue Avalide and metoprolol. Assessment & Plan (07/22/2022 9:36 AM UKE DRIVER): Well controlled. Continue current prescription medications. Assessment [...] Comments Blood Pressure 134/80 07/23/2024 2:37 PM UKE DRIVER Pulse 86 07/23/2024 2:37 PM UKE DRIVER Temperature - - Respiratory Rate 16 04/10/2020 10:32 AM CDT Oxygen Saturation 96% 07/23/2024 2:37 PM UKE DRIVER Inhaled Oxygen Concentration - - Weight 167.8 kg (370 lb) 07/23/2024 2:37 PM UKE DRIVER Height 177.8 cm (5' 10 ) 07/23/2024 2:37 PM UKE DRIVER Body Mass Index 53.09 07/23/2024 2:37 PM UKE DRIVER Plan of Treatment Not on file Insurance IDPA [facility] HMO/PPO Address: [address] [address] [place] [address] [facility] HMO/PPO Address: [address] [address] [place] [address] Care Teams Plastic Straightening Roll Operator Relationship Specialty Start Date End Date Janes Oakes MD [address] [address] PCP - General Family Medicine 07/22/22
[2024-12-28 07:52] LABS: Anion Gap 6 mmol/L (4-12); Blood Urea Nitrogen 13 mg/dL (7-17); Calcium 9.1 mg/dL (8.4-10.2); Carbon Dioxide 27 mmol/L (22-30); Chloride 107 mmol/L (98-107); Estimated Glomerular Filt Rate > 60; Glucose 118 mg/dL (65-110); Potassium 4.4 mmol/L (3.4-5.0); Sodium 140 mmol/L (137-145)
[2024-12-28 08:01] LABS: Hemoglobin A1C 5.8 % (<5.7)
[2024-12-28 08:41] LABS: Vitamin B12 > 1000.0 pg/mL (239-931)
[2024-12-28 09:22] LABS: Vitamin D 25 Hydroxy 30.4 ng/mL
== END 2024-12-28 06:56 | disposition home or self-care (01) ==
LOC: ANHLAB 06:58
PROVIDERS: PCP Nurse Practitioner Family; Visit Provider Nurse Practitioner Family
DX: I10 Essential (primary) hypertension (principal); R73.01 Impaired fasting glucose; E53.8 Deficiency of other specified B group vitamins; E55.9 Vitamin D deficiency, unspecified
CPT/HCPCS: 36415; 80048; 82306; 82607; 83036

== ENCOUNTER 2025-01-04 10:41 | Outpatient (CLI) | payer OTHER, SELFPAY ==
--- NOTE | ~2025-01-04 | US_ITS ---
Pelvic ultrasound. Clinical History: Endometrial hyperplasia Technique: Realtime transabdominal and transvaginal scanning of the pelvis was performed. Color flow Doppler and Doppler spectral analysis were performed. Findings: The uterus is anteverted. The endometrial stripe has a thickness of 8 mm. No focal mass is identified. Neither ovary visualized. No adnexal mass seen. There is no evidence of free fluid in the cul de sac. Impression: No significant abnormality seen. Reviewed, dictated and finalized at location . Impression: No significant abnormality seen.
--- NOTE | ~2025-01-04 | MM_ITS ---
EXAMINATION: MM screening [place] BI w ninfa HISTORY: Screening TECHNIQUE: Craniocaudal and mediolateral oblique 3-D tomosynthesis images were obtained and synthetic 2-D images were generated. CAD analysis was submitted and interpreted. COMPARISON: Comparison to multiple prior studies sequentially, with oldest reviewed study dated 10/2022. BREAST PARENCHYMAL COMPOSITION: Not dense: There are scattered areas of fibroglandular density. FINDINGS: There is no evidence of suspicious mass, calcification, or architectural distortion to sugg est malignancy in either breast. There has been no suspicious interval change. IMPRESSION: 1. No mammographic evidence of malignancy. 2. Recommend routine screening mammography in one year. BI-RADS Category 1: Negative Reviewed, dictated and finalized at location A.
== END 2025-01-04 10:42 | disposition home or self-care (01) ==
LOC: MICIMG 10:43
PROVIDERS: PCP Nurse Practitioner Family; Visit Provider Obstetrics & Gynecology
DX: Z12.31 Encounter for screening mammogram for malignant neoplasm of breast (principal); Z87.42 Personal history of other diseases of the female genital tract
CPT/HCPCS: 76830; 76856; 77063; 77067

== ENCOUNTER 2025-01-10 18:11 | Emergency (ER) | payer OTHER, SELFPAY ==
--- NOTE | ~2025-01-10 | XR_ITS ---
XR finger 5th RT min 2V Ordering provider: Keisha Lares NP History: . fall, finger was bent back . Comparison: None. FINDINGS: BONES: No acute fracture or dislocation. JOINT SPACES: Normal. SOFT TISSUES: Normal. IMPRESSION: No acute osseous abnormality. Reviewed, dictated and finalized at location A.
[2025-01-10 18:32] VITALS: BP 163/91; PULSE 79; RESP 16; TEMP 36.6; O2SAT 99
--- NOTE | 2025-01-10 18:32 | ED.UPPEXIN ---
HPI - Extremity Injury (Upper) General Chief Complaint: Extremity Injury, Upper Stated Complaint: R 5TH FINGER INJURY Time Seen by Provider: 01/10/25 18:22 Source: patient, RN notes reviewed and old records reviewed Mode of arrival: ambulatory Limitations: no limitations History of Present Illness HPI narrative: 44year old female who presents to express care with complaints of fall today when she was taking her dog to the foot piece assembler when her dog caused her to fall onto to left knee and forearm and she put right hand down to try and brace fall and 5th finger got bent backwards. Patient concerned of possible fracture to her right 5th finger due to pain in finger and pain with any bending of finger. Patient has not taken any OTC medications or applied ice to finger prior to arrival MD complaint: injury to: right and finger (5th finger) Onset (ago): hour(s) (at 1630 today) Other injuries: none Handedness: right Place: other (at vet's office) Severity scale (1-10): 7 Exacerbating factors: movement of extremity Treatments prior to arrival: other (none) Related Data Home Medications ?Medication ?Instructions ?Recorded ?Confirmed ?Last Taken ?Type medroxyprogesterone 150 mg/mL 150 mg IM [id number] 02/11/20 01/10/25 Unknown History intramuscular suspension cholecalciferol (vitamin D3) 50 50 mcg PO DAILY 03/02/21 01/10/25 Unknown History mcg (2,000 unit) capsule mecobalamin (vitamin B12) 500 mcg 500 mcg PO DAILY 03/27/23 01/10/25 Unknown History chewable tablet Allergies Allergy/AdvReac Type Severity Reaction Status Date / Time No Known Allergies Allergy Verified 01/10/25 18:21 Review of Systems Review of Systems: CONSTITUTIONAL: Denies fever, chills, or sweats. EYES: Denies visual changes, redness, or discharge. ENT: Denies rhinorrhea, congestion, sore throat, or otalgia. CARDIOVASCULAR: Denies chest pain, palpitations, or edema. RESPIRATORY: Denies cough or dyspnea. GASTROINTESTINAL: Denies abdominal pain, nausea, vomiting, or diarrhea. GENITOURINARY: Denies dysuria or hematuria. SKIN: Denies rash or itching. MUSCULOSKELETAL: Denies back pain, positive for pain to the right 5th finger with movement, or myalgia. NEUROLOGIC: Denies headache, numbness, or weakness. PSYCHIATRIC: Denies anxiety or depression. All systems reviewed & are unremarkable except as noted in HPI and below PMFSH Past Medical History Medical History (Updated 01/10/25 @ 19:01 by Keisha Lares NP) Right shoulder pain Breast cancer screening Left-sided chest wall pain Acquired elevated diaphragm elevated left hemidiaphragm on chest x-ray 01/09/2023 new since 12/26/2017. Acute LUQ pain Rib pain on left side Cough COVID-19 11/18/22 Dysuria Elevated fasting glucose Nocturia Paresthesia Snoring Morbid obesity with BMI of 50.0-59.9, adult Nasal congestion Lumbago Anxiety Acute bacterial tonsillitis Rash and nonspecific skin eruption Vitamin D deficiency B12 deficiency Encounter for wellness examination Plantar fasciitis Morbid obesity with BMI of 45.0-49.9, adult Migraine headache with aura Primary hypertension Frequent headaches Essential (primary) hypertension Surgical History Surgical History [place] teeth extracted Hx of dilation and curettage x3 Family History Family History Father Heart disease Hypertension Cerebrovascular accident History of heart valve replacement Grandparent Ovarian cancer Grandparent Cancer Grandparent Lung cancer Social History Social History (Reviewed 01/01/25 @ 08:10 by Siva Olguin [facility] [address]) Smoking status: Never smoker Second hand tobacco smoke exposure: No Alcohol intake: never Substance use: never Substance use type: does not use Lack of Transportation: No Lack of Food: Never True Current Housing: I Have Housing Concerned About Future Housing: No Difficulty Paying Gas/Electric Bills: No Difficulty Paying for Meds: No Currently Unemployed: No Education: High School Diploma/GED Difficulty w/ Childcare or Family Care: No Gender identity (if verbalized by the patient): Female Comments At time of signature, agree with nursing past medical, surgical, social and family history. There is no relevant family history pertinent to the presenting complaint Exam Narrative: GENERAL: Well-appearing, well-nourished,obese, and in no acute distress. HEAD: Normocephalic, atraumatic. EYES: PERRLA and EOMI. ENT: Nares clear, no rhinorrhea or epistaxis. Mucous membranes moist. TM's normal throat pink with no swelling NECK: Supple. no lymphadenopathy CHEST: Clear to auscultation. No respiratory distress. SAO2 99% on room air HEART: Regular rate and rhythm. No murmur heard. Normal peripheral pulses. ABDOMEN: Soft, nontender, nondistended, normal active bowel sounds. EXTREMITIES: Normal range of motion. No edema. exception noted to the right 5th finger with minimal swelling and pain with bending after experienced fall today and finger bent backward. Patient is able to straighten and bend finger on own power minimal swelling to the finger noted SKIN: Warm, dry, no rash. NEURO: No focal deficits. Alert and oriented x3. Course Course Emergency Course: Patient is aware of diagnosis, understands and agrees to treatment plan.? Anticipatory guidance given.? Patient agrees to follow-up as directed and is aware of reasons to seek care at the emergency department. Portions of this record may have been created with voice recognition software Level of Care: Express Care Visit Vital Signs Vital signs: Reviewed MDM - Extremity Injury (Upper) Differential Diagnosis Differential diagnosis: Likely finger sprain and other (finger fracture, injury to right 5th finger due to fall, pain right 5th finger) Medical Records Attestation: I reviewed the patient's medical records. Imaging Data Attestation: I personally reviewed and interpreted this imaging study as follows: My impression: no fracture to right 5th finger Radiologist's impression: [facility] [address] [place] [address] XRay Report Signed Patient: Nani Tolbert : 1980 MR#: [id number] Age: 44 Acct:[id number] Loc: [facility] ADM Date: 01/10/25Attending Dr: Ordering Physician: Keisha Lares APRN Date of Service: 01/10/25 Procedure(s): XR finger 5th RT min 2V Accession Number(s): [id number] cc: Sravani Baker APN; Keisha Lares APRN~ XR finger 5th RT min 2V Ordering provider: Keisha Lares NP History: . fall, finger was bent back . Comparison: None. FINDINGS: BONES: No acute fracture or dislocation. JOINT SPACES: Normal. SOFT TISSUES: Normal. IMPRESSION: No acute osseous abnormality. Reviewed, dictated and finalized at location A. Please be advised this is a medical document. It is intended for [id number] communication. It is written in medical language and may contain unfamiliar abbreviations or verbiage. Medical documents are intended to carry relevant information, facts as evident, and the clinical opinion of the practitioner at the time of the encounter. This report may have been done utilizing a voice recognition system. Attempts have been made to correct errors. However, there may be uncorrected grammatical, spelling, and recognition errors present. The file time of this note does not necessarily represent the time of service. Dictated By: Blayne Perez MD 01/10/25 1843 Signed By: <Electronically signed by Blayne Perez MD in OV> Critical Care Time Critical Care Time Critical Care Time: No Discharge Plan Discharge Clinical Impression: Sprain of finger of right hand Qualifiers: Encounter type: initial encounter Finger: little finger Sprain of finger site: unspecified site Qualified Code(s): S63.616A - Unspecified sprain of right little finger, initial encounter Patient Disposition: Home Condition: Stable Instructions: Finger Sprain (ED) Additional Instructions: Tylenol for lesser pain Ibuprofen regularly for the next 2-3 days for the inflammation move right 5th finger frequently Follow-up with orthopedic surgeon or hand surgeon if any can continued concerns Follow-up with PCP if further problems or concerns Ice to the area 20-30 minutes 4-6 times a day Elevate above heart If your symptoms persist, change or worsen significantly before you can contact your personal physician then please, without delay, go to the emergency department for further evaluation. Follow-up with PCP in 7-10 days or sooner if needed Follow up with PCP soon in regards to your blood pressure which is elevated above threshold for referral. Blood pressure above 120/80 may indicate pre-hypertension. 163/91 Patient Language: Spanish Prescriptions: No Action cholecalciferol (vitamin D3) 50 mcg (2,000 unit) capsule 50 mcg PO DAILY medroxyprogesterone 150 mg/mL suspension 150 mg IM [id number] mecobalamin (vitamin B12) 500 mcg tablet,chewable 500 mcg PO DAILY fluticasone propionate [Flonase Allergy Relief] 50 mcg/actuation spray,suspension 1 - 2 spray intranasal Q12H Qty: 16 11RF Rx Instructions: administer into each nostril rizatriptan 10 mg tablet 10 mg PO ONCE Qty: 9 11RF Rx Instructions: may repeat once after at least 2 hours diclofenac sodium [Voltaren Arthritis Pain] 1 % gel 2 g topical QID Qty: 100 2RF irbesartan-hydrochlorothiazide 300-12.5 mg tablet 1 tablet PO DAILY Qty: 90 3RF metoprolol succinate 50 mg tablet extended release 24 hr 50 mg PO DAILY Qty: 90 3RF Follow-up/Referrals: Sravani Baker NP [Primary Care Provider] - Time of Disposition: 19:00 Quality Rosalia Coma Scale Eyes: Open Verbal: Oriented and Alert Motor: Follows Commands Rosalia Coma Total Score: 15
== END 2025-01-10 19:03 | disposition home or self-care (01) ==
PROVIDERS: Emergency Provider Registered Nurse; PCP Nurse Practitioner Family
DX: S63.616A Unspecified sprain of right little finger, initial encounter (principal); W19.XXXA Unspecified fall, initial encounter; I10 Essential (primary) hypertension; E53.8 Deficiency of other specified B group vitamins; E55.9 Vitamin D deficiency, unspecified; E66.01 Morbid (severe) obesity due to excess calories; Z68.43 Body mass index [BMI] 50.0-59.9, adult; Z86.16 Personal history of COVID-19
CPT/HCPCS: 73140; 99213; G0463

== ENCOUNTER 2025-02-03 12:59 | Outpatient (CLI) | payer OTHER, SELFPAY ==
--- NOTE | ~2025-02-03 | XR_ITS ---
Right wrist Technique: PA, oblique, lateral, and ulnar deviation views were obtained. Clinical History: Pain Findings: No acute fracture or dislocation is seen. Osseous alignment is anatomic. Joint spaces are p reserved. Soft tissues are unremarkable. Impression: Unremarkable right wrist radiographs. Reviewed, dictated and finalized at location . Impression: Unremarkable right wrist radiographs.
== END 2025-02-03 13:00 | disposition home or self-care (01) ==
LOC: GOSHIMG 13:00
PROVIDERS: PCP Nurse Practitioner Family; Visit Provider Nurse Practitioner Family
DX: S69.91XA Unspecified injury of right wrist, hand and finger(s), initial encounter (principal); W19.XXXA Unspecified fall, initial encounter
CPT/HCPCS: 73110

== ENCOUNTER 2025-02-12 19:10 | Emergency (ER) | payer OTHER, SELFPAY ==
--- NOTE | 2025-02-12 19:12 | ED_ITS ---
HPI - General Adult General Chief complaint: Upper Respiratory Infection Stated complaint: COUGH/CONGESTION/TIRED/SINUS Source: patient Mode of arrival: ambulatory Limitations: no limitations History of Present Illness HPI narrative: patient is a 44-year-old female presenting with complaint of cough, congestion, fatigue. Symptoms began on Monday. Reports numerous sick contacts with the same symptoms at work, works upstairs at primary care doctor office. Patient reports Dr. Baron called in azithromycin, prednisone, Tessalon Perles yesterday which she has been taking without improvement in symptoms. No fevers, chills, rigors. No known exposure to COVID, flu, strep, pneumonia. No additional complaints. Related Data Home Medications ?Medication ?Instructions ?Recorded ?Confirmed ?Last Taken ?Type medroxyprogesterone 150 mg/mL 150 mg IM [id number] 02/11/20 02/12/25 Unknown History intramuscular suspension cholecalciferol (vitamin D3) 50 50 mcg PO DAILY 03/02/21 02/12/25 Unknown History mcg (2,000 unit) capsule mecobalamin (vitamin B12) 500 mcg 500 mcg PO DAILY 03/27/23 02/12/25 Unknown History chewable tablet medroxyprogesterone 150 mg/mL 150 mg IM [id number] 02/12/25 02/12/25 Unknown History intramuscular syringe Allergies Allergy/AdvReac Type Severity Reaction Status Date / Time No Known Allergies Allergy Verified 02/12/25 19:15 Review of Systems Review of Systems: CONSTITUTIONAL: Denies body aches, fever, chills, or sweats. EYES: Denies visual changes, redness, or discharge. ENT: Denies rhinorrhea, sore throat, or otalgia. CARDIOVASCULAR: Denies chest pain, palpitations, or edema. RESPIRATORY: Denies dyspnea. GASTROINTESTINAL: Denies abdominal pain, nausea, vomiting, or diarrhea. GENITOURINARY: Denies dysuria or hematuria. SKIN: Denies rash, itching, or wounds. MUSCULOSKELETAL: Denies back pain, joint pain, or myalgia. NEUROLOGIC: Denies headache, numbness, tingling, or weakness. PSYCH: Denies depression or anxiety. All systems reviewed & are unremarkable except as noted in HPI and below PMFSH Past Medical History Medical History Right wrist pain Right shoulder pain Breast cancer screening Left-sided chest wall pain Acquired elevated diaphragm elevated left hemidiaphragm on chest x-ray 01/09/2023 new since 12/26/2017. Acute LUQ pain Rib pain on left side Cough COVID-19 11/18/22 Dysuria Elevated fasting glucose Nocturia Paresthesia Snoring Morbid obesity with BMI of 50.0-59.9, adult Nasal congestion Lumbago Anxiety Acute bacterial tonsillitis Rash and nonspecific skin eruption Vitamin D deficiency B12 deficiency Encounter for wellness examination Plantar fasciitis Morbid obesity with BMI of 45.0-49.9, adult Migraine headache with aura Primary hypertension Frequent headaches Essential (primary) hypertension Surgical History Surgical History [place] teeth extracted Hx of dilation and curettage x3 Family History Family History Father Heart disease Hypertension Cerebrovascular accident History of heart valve replacement Grandparent Ovarian cancer Grandparent Cancer Grandparent Lung cancer Social History Social History Smoking status: Never smoker Second hand tobacco smoke exposure: No Alcohol intake: never Substance use: never Substance use type: does not use Lack of Transportation: No Lack of Food: Never True Current Housing: I Have Housing Concerned About Future Housing: No Difficulty Paying Gas/Electric Bills: No Difficulty Paying for Meds: No Currently Unemployed: No Education: High School Diploma/GED Difficulty w/ Childcare or Family Care: No Gender identity (if verbalized by the patient): Female Exam Narrative: GENERAL: Well-appearing, well-nourished, Morbidly obese, and in no acute distress. HEAD: Normocephalic, atraumatic. EYES: EOMI. No redness or drainage. Conjunctivae normal. ENT: Mucous membranes pink and moist. Nares clear. No rhinorrhea. TMs normal bilaterally. Throat normal. Uvula midline. NECK: Normal AROM. Supple. No lymphadenopathy. CHEST: No respiratory distress. Clear to auscultation. no cough noted during the time I spent in the exam room. HEART: Regular rate and rhythm. No murmur appreciated. Normal peripheral pulses. ABDOMEN: Soft, nontender, nondistended, normal active bowel sounds. MUSCULOSKELETAL: No bony tenderness. EXTREMITIES: Normal range of motion. No edema. SKIN: Warm, dry, no rash. Capillary refill normal. Normal skin turgor. NEURO: No focal deficits. Alert and oriented x3. Gait steady. PSYCH: Normal affect. No signs of depression or anxiety. Course Course Emergency Course: Please be advised this is a medical document. It is intended for zgyj-gj-hjqp communication. It is written in medical language and may contain unfamiliar abbreviations or verbiage. Medical documents are intended to carry relevant information, facts as evident, and the clinical opinion of the practitioner at the time of the encounter. This dictation may have been done utilizing a voice recognition system. Attempts have been made to correct errors. However, there may be uncorrected grammatical, spelling, and recognition errors present. Level of Care: Express Care Visit Discharge Plan Discharge Clinical Impression: Acute upper respiratory infection, Morbid obesity with BMI of 45.0-49.9, adult Patient Disposition: Home Condition: Stable Instructions: Antibiotic Form, Upper Respiratory Infection (DC) Additional Instructions: Go straight to ER should your symptoms become worse or should any new symptoms develop Patient Language: Bengali Prescriptions: No Action medroxyprogesterone 150 mg/mL syringe 150 mg IM [id number] cholecalciferol (vitamin D3) 50 mcg (2,000 unit) capsule 50 mcg PO DAILY medroxyprogesterone 150 mg/mL suspension 150 mg IM [id number] mecobalamin (vitamin B12) 500 mcg tablet,chewable 500 mcg PO DAILY fluticasone propionate [Flonase Allergy Relief] 50 mcg/actuation spray,suspension 1 - 2 spray intranasal Q12H Qty: 16 11RF Rx Instructions: administer into each nostril rizatriptan 10 mg tablet 10 mg PO ONCE Qty: 9 11RF Rx Instructions: may repeat once after at least 2 hours diclofenac sodium [Voltaren Arthritis Pain] 1 % gel 2 g topical QID Qty: 100 2RF irbesartan-hydrochlorothiazide 300-12.5 mg tablet 1 tablet PO DAILY Qty: 90 3RF metoprolol succinate 50 mg tablet extended release 24 hr 50 mg PO DAILY Qty: 90 3RF azithromycin 250 mg tablet See Rx Instructions PO .COMPLEX Qty: 6 0RF Rx Instructions: For 250 mg dose pack: take 500 mg today (day 1), then 250 mg for 4 days (days 2-5) PO prednisone 10 mg tablet 10 mg PO QAM Qty: 5 0RF benzonatate 100 mg capsule 100 mg PO QHS PRN (Reason: cough) Qty: 5 0RF Follow-up/Referrals: Sravani Baker NP [Primary Care Provider] - 02/13/25 Time of Disposition: 19:19
[2025-02-12 19:19] VITALS: BP 125/89; PULSE 92; RESP 16; TEMP 37.2; O2SAT 96
== END 2025-02-12 19:28 | disposition home or self-care (01) ==
PROVIDERS: Emergency Provider Registered Nurse; PCP Nurse Practitioner Family
DX: J06.9 Acute upper respiratory infection, unspecified (principal); E66.01 Morbid (severe) obesity due to excess calories; Z68.43 Body mass index [BMI] 50.0-59.9, adult; I10 Essential (primary) hypertension; E53.8 Deficiency of other specified B group vitamins; E55.9 Vitamin D deficiency, unspecified; Z86.16 Personal history of COVID-19
CPT/HCPCS: 99211; G0463

== ENCOUNTER 2025-03-18 14:21 | Outpatient (NON) | payer OTHER, SELFPAY ==
--- OUTSIDE RECORDS SUMMARY | 2025-03-18 14:23 | XMS_ITS | Continuity of Care Document ---
Author Organization [facility] [place] [address] [place] [address] Phone Care Team Providers Care [employer] Repairer Name Role Phone [facility] Unavailable [...] Diagnoses Date Provider Providers Copied on Encounter [facility], [address] [place] [address] [address], [place], [place], [id number], [place] tel:[phone] [facility] No Information 9 [facility] . [address] [facility], [facility] [address], [place], [id number], [place]. tel:[phone] Referring Provider: Julien Daniel, [address] [place], [place] [address], [place], [address]. tel:[phone] sulting Provider: [facility], [place], [address]. tel:[phone] [facility], [address], [place], [place], [id number], [place] tel:[phone] [facility] No Information [address] [place]. [facility] , [address], [place], [address], [place]. tel:[phone] Family History Family Member Type Diagnosis Age At Onset No Information Payers Payer name Insurance type Covered libertarian ID Authoriza tion(s) No Information Social History [...]
--- OUTSIDE RECORDS SUMMARY | 2025-03-18 14:23 | XMS_ITS | Referral Summary ---
Author Organization [facility] [address] Address [address] [place] [address] Care Team Providers Care Vac[employer] Forming Machine Operator Name Role Phone Janes Oakes MD Primary Care Provider [phone] Allergies No known active allergies Medications irbesartan-hydro [...] 09/2017 Assessment & Plan (07/22/2022 9:36 AM CLOSET BUILDER): Significant weight gain since last appointment but [...] 02/02/2018 Assessment & Plan (07/23/2024 2:56 PM CLOSET BUILDER): Blood pressure is reasonably well controlled at home. Reports that metoprolol was added to her regimen since her last visit with me. Continue Avalide and metoprolol. Assessment & Plan (07/22/2022 9:36 AM CLOSET BUILDER): Well controlled. Continue current prescription medications. Assessment [...] Comments Blood Pressure 134/80 07/23/2024 2:37 PM CLOSET BUILDER Pulse 86 07/23/2024 2:37 PM CLOSET BUILDER Temperature - - Respiratory Rate 16 04/10/2020 10:32 AM CDT Oxygen Saturation 96% 07/23/2024 2:37 PM CLOSET BUILDER Inhaled Oxygen Concentration - - Weight 167.8 kg (370 lb) 07/23/2024 2:37 PM CLOSET BUILDER Height 177.8 cm (5' 10) 07/23/2024 2:37 PM CLOSET BUILDER Body Mass Index 53.09 07/23/2024 2:37 PM CLOSET BUILDER Plan of Treatment Not on file Insurance [facility] Care Teams Vacuum Plastic Forming Machine Operator Relationship Specialty Start Date End Date Janes Oakes MD [address] [address] PCP - General Family Medicine 07/22/22
--- OUTSIDE RECORDS SUMMARY | 2025-03-18 14:23 | XMS_ITS | Clinical Summary ---
Author Organization [facility] [address] Address [address] [place] [address] Care Team Providers Care Application Spec Name Role Phone Janes Oakes MD Primary Care Provider [phone] Allergies No known active allergies Medications irbesartan-hydro [...] 09/2017 Assessment & Plan (07/22/2022 9:36 AM HVAC COMMERCIAL SALESPERSON): Significant weight gain since last appointment but [...] 02/02/2018 Assessment & Plan (07/23/2024 2:56 PM HVAC COMMERCIAL SALESPERSON): Blood pressure is reasonably well controlled at home. Reports that metoprolol was added to her regimen since her last visit with me. Continue Avalide and metoprolol. Assessment & Plan (07/22/2022 9:36 AM HVAC COMMERCIAL SALESPERSON): Well controlled. Continue current prescription medications. Assessment [...] Comments Blood Pressure 134/80 07/23/2024 2:37 PM HVAC COMMERCIAL SALESPERSON Pulse 86 07/23/2024 2:37 PM HVAC COMMERCIAL SALESPERSON Temperature - - Respiratory Rate 16 04/10/2020 10:32 AM CDT Oxygen Saturation 96% 07/23/2024 2:37 PM HVAC COMMERCIAL SALESPERSON Inhaled Oxygen Concentration - - Weight 167.8 kg (370 lb) 07/23/2024 2:37 PM HVAC COMMERCIAL SALESPERSON Height 177.8 cm (5' 10) 07/23/2024 2:37 PM HVAC COMMERCIAL SALESPERSON Body Mass Index 53.09 07/23/2024 2:37 PM HVAC COMMERCIAL SALESPERSON Plan of Treatment Health Maintenance Due Date Last Done Comments Breast Cancer Screening-Mammogram 1980 Cervical Cancer Screening 1980 Depression Screening 1980 Hepatitis C Screening 1980 DTaP/Tdap/Td Vaccine (1 - Tdap) 1993 Varicella Vaccines (1 of 2 - 13+ 2-dose series) 1995 Hepatitis B Screening 2000 Regular Well Visit/Exam 18-64 2000 Influenza Vaccine (Season Ended) 2025 09/24/19 13 HPV Vaccines Aged Out No longer eligi ble based on patient's age to complete this topic Pneumococcal vaccine <65 Aged Out No longer eligible based on patient's age to complete this topic Insurance [facility] Care Teams Application Spec Relationship Specialty Start Date End Date Janes Oakes MD [address] [id number] PCP - General Family Medicine 07/22/22
== END 2025-03-18 14:22 | disposition home or self-care (01) ==
LOC: ANHGOSHLAB 14:21
PROVIDERS: PCP Nurse Practitioner Family; Visit Provider Otolaryngology
DX: S91.302A Unspecified open wound, left foot, initial encounter (principal); X58.XXXA Exposure to other specified factors, initial encounter
CPT/HCPCS: 87070; 87075

== ENCOUNTER 2025-05-06 09:04 | Outpatient (CLI) | payer OTHER, MEDICAID, SELFPAY ==
--- OUTSIDE RECORDS SUMMARY | 2025-05-06 09:15 | XMS_ITS | Clinical Summary ---
Author Organization [facility] [place] [address] Address [address] [place] [address] Care Team Providers Care Processor Helper Name Role Phone Janes Oakes MD Primary Care Provider [phone] Allergies No known active allergies Medications irbesartan-hydro [...] 09/2017 Assessment & Plan (07/22/2022 9:36 AM URBAN DESIGNER): Significant weight gain since last appointment but [...] 02/02/2018 Assessment & Plan (07/23/2024 2:56 PM URBAN DESIGNER): Blood pressure is reasonably well controlled at home. Reports that metoprolol was added to her regimen since her last visit with me. Continue Avalide and metoprolol. Assessment & Plan (07/22/2022 9:36 AM URBAN DESIGNER): Well controlled. Continue current prescription medications. Assessment [...] Comments Blood Pressure 134/80 07/23/2024 2:37 PM URBAN DESIGNER Pulse 86 07/23/2024 2:37 PM URBAN DESIGNER Temperature - - Respiratory Rate 16 04/10/2020 10:32 AM CDT Oxygen Saturation 96% 07/23/2024 2:37 PM URBAN DESIGNER Inhaled Oxygen Concentration - - Weight 167.8 kg (370 lb) 07/23/2024 2:37 PM URBAN DESIGNER Height 177.8 cm (5' 10) 07/23/2024 2:37 PM URBAN DESIGNER Body Mass Index 53.09 07/23/2024 2:37 PM URBAN DESIGNER Plan of Treatment Health Maintenance Due Date Last Done Comments Breast Cancer Screening-Mammogram 1982 Cervical Cancer Screening 1982 Depression Screening 1982 Hepatitis C Screening 1982 DTaP/Tdap/Td Vaccine (1 - Tdap) 1993 Varicella Vaccines (1 of 2 - 13+ 2-dose series) 1995 Hepatitis B Screening 2000 Regular Well Visit/Exam 18-64 2000 HPV Vaccines (1 - 3-dose SCD M series) 2009 Influenza Vaccine (#1) 2025 09/24/2012 Pneumococcal vaccine <65 Aged Out No longer eligible based on patient's age to complete this topic Insurance [employer] [facility] H[facility]/PPO Address: [address] [address] [place] [address] [facility] H[facility]/PPO Address: [address] [address] Care Teams Processor Helper Relationship Specialty Start Date End Date Janes Oakes MD [address] [address] PCP - General Family Medicine 07/22/22
[2025-05-06 15:49] LABS: Add Urine Microscopic? YES; Appearance Urine Clear (Clear); Glucose Urine UA Negative (Negative); Leukocyte Esterase Ur 1+ LEU/UL (Negative); Need Manual Microscopic Reviewed; Nitrate Urine Negative (Negative); Non Pathogenic Casts 0-2; Specific Grav Ur 1.017 (1.001-1.035)
== END 2025-05-06 09:05 | disposition home or self-care (01) ==
LOC: ANHGOSHLAB 09:05
PROVIDERS: PCP Nurse Practitioner Family; Visit Provider Nurse Practitioner Family
DX: R30.0 Dysuria (principal)
CPT/HCPCS: 81001; 87086

== ENCOUNTER 2025-06-16 12:49 | Outpatient (CLI) | payer OTHER, SELFPAY ==
--- NOTE | ~2025-06-16 | XR_ITS ---
EXAMINATION: XR shoulder RT min 2V, 06/16/2025 12:56 CDT HISTORY: Pain in right shoulder x 6 months, fell in january COMPARISON: No comparisons available. Findings: No acute fracture or malalignment. No significant degenerative changes. Soft tissues unremarkable. Impression: No acute fracture or malalignment. Reviewed, dictated and finalized at location P. Impression: No acute fracture or malalignment.
== END 2025-06-16 12:50 | disposition home or self-care (01) ==
LOC: GOSHIMG 12:50
PROVIDERS: PCP Family Medicine; Visit Provider Family Medicine
DX: M25.511 Pain in right shoulder (principal)
CPT/HCPCS: 73030

== ENCOUNTER 2025-07-12 07:03 | Outpatient (CLI) | payer OTHER, SELFPAY ==
--- OUTSIDE RECORDS SUMMARY | 2008-09-21 18:00 | XMS_ITS | Continuity of Care Document ---
Author Organization [facility] Address [address] [place] [address] Phone Care Team Providers Care Wine Sales Representative Name Role Phone [facility] Unavailable Unavail able Juan Mullen Unavailable Unavailable Procedures Procedure Date SV Poly Carb Sph +/- 7.12 To +/- 20 D Ja Frames Deluxe Tax - Medical Eye Exam & Treatment Refraction Advance Directives Directive Yes / No Effective Date File Name No Information Encounters Encounter Description Practice Location Reason(s) For Visit Diagnoses Date Provider Providers Copied on Encounter [facility], [address] [place] [address] [address], [place], [place], [id number], [place] tel:[phone] [facility] No Information 9 [facility] . [address] [facility], [facility] [address], [place], [id number], [place]. tel:[phone] Referring Provider: Julien Daniel, [address] [place], [place] [address], [place], [address]. tel:[phone] sulting Provider: Raisa Moreira [facility], [place], [address]. tel:[phone] [facility], [address], [place], [place], [id number], [place] tel:[phone] [facility] No Information [address] KEM[address] [place]. [facility] , [address], [place], [address], [place]. tel:[phone] Family History Family Member Type Diagnosis Age At Onset No Information Payers Payer name Insurance type Covered constitution party ID Authoriza tion(s) No Information Social History Type Description Quantity Date Captured Comments Sex Female Smoking Status No Information Chief Complaint And Reason For Visit No Information Reason For Referral Reason For Referral No Information History Of Present Illness Encounter Date Complaint History Of Prese nt Illness No Information Functional Status Date Functional Assessmen t No Information Instructions Date Instruction Additional Infor mation No Information Assessments Type Assessment Date No Information Patient Care Teams Name Effective Dates (start - stop) Status Members No Information
--- OUTSIDE RECORDS SUMMARY | 2025-07-12 07:08 | XMS_ITS | Clinical Summary ---
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 Reports that metoprolol was added to her regimen since her last visit with me. Continue Avalide and metoprolol. Assessment & Plan (07/22/2022 9:36 AM DEEP FRYER ASSEMBLER): Well controlled. Continue current prescription medications. Assessment [...] Comments Blood Pressure 134/80 07/23/2024 2:37 PM DEEP FRYER ASSEMBLER Pulse 86 07/23/2024 2:37 PM DEEP FRYER ASSEMBLER Temperature - - Respiratory Rate 16 04/10/2020 10:32 AM CDT Oxygen Saturation 96% 07/23/2024 2:37 PM DEEP FRYER ASSEMBLER Inhaled Oxygen Concentration - - Weight 167.8 kg (370 lb) 07/23/2024 2:37 PM DEEP FRYER ASSEMBLER Height 177.8 cm (5' 10) 07/23/2024 2:37 PM DEEP FRYER ASSEMBLER Body Mass Index 53.09 07/23/2024 2:37 PM DEEP FRYER ASSEMBLER Plan of Treatment Health Maintenance Due Date [...] patient's age to complete this topic Insurance [facility] H[facility]/PPO Address: [address] [address] [place] [address] [facility] H[facility]/PPO Address[address] [address] Care Teams Energy Sales Consultant Relationship Specialty Start Date End Date Janes Oakes MD [address] [address] PCP - General Family Medicine 07/22/22
[2025-07-12 07:56] LABS: Hematocrit 42.9 % (37.0-47.0); Hemoglobin 14.1 g/dL (12.0-15.0); Mean Corpuscular HGB Conc 32.9 g/dl (32-36); Mean Corpuscular Hemoglobin 30.7 pg (26-34); Mean Corpuscular Volume 93.5 fl (80-100); Platelet Count Result 233 k/mm3 (150-375); Red Blood Count 4.59 M/mm3 (4.2-5.4); White Blood Count 7.1 K/mm3 (4.5-10.0)
[2025-07-12 10:36] LABS: Alanine Aminotransferase 19 U/L (6-35); Albumin Level 4.1 g/dL (3.5-5.1); Alkaline Phosphatase 63 U/L (38-126); Anion Gap 7 mmol/L (4-12); Aspartate Amino Transferase 32 U/L (14-36); Bilirubin,Total 0.9 mg/dL (0.2-1.3); Blood Urea Nitrogen 13 mg/dL (7-17); Calcium 9.0 mg/dL (8.4-10.2); Carbon Dioxide 24 mmol/L (22-30); Chloride 107 mmol/L (98-107); Cholesterol 160 mg/dL (0-200); Estimated Glomerular Filt Rate > 60; Glucose 111 mg/dL (65-110); HDL Direct 36 mg/dL; Potassium 4.1 mmol/L (3.4-5.0); Sodium 138 mmol/L (137-145); Total Protein 7.2 g/dL (6.3-8.2); Triglycerides 122 mg/dL (<150)
[2025-07-12 10:57] LABS: Hemoglobin A1C 6.0 % (<5.7)
[2025-07-12 11:11] LABS: Thyroid Stimulating Hormone 2.440 uIU/mL (0.465-4.680)
[2025-07-12 11:30] LABS: Vitamin B12 567.0 pg/mL (239-931)
== END 2025-07-12 07:04 | disposition home or self-care (01) ==
LOC: ANHLAB 07:04
PROVIDERS: PCP Family Medicine; Visit Provider Family Medicine
DX: E78.5 Hyperlipidemia, unspecified (principal); F41.9 Anxiety disorder, unspecified; I10 Essential (primary) hypertension; E53.8 Deficiency of other specified B group vitamins; E55.9 Vitamin D deficiency, unspecified; E66.01 Morbid (severe) obesity due to excess calories; Z68.42 Body mass index [BMI] 45.0-49.9, adult; R73.03 Prediabetes
CPT/HCPCS: 36415; 80053; 80061; 82306; 82607; 83036; 84443; 85027